=== PATIENT | female | born 2000 | race Caucasian/White ===

== ENCOUNTER 2025-11-08 08:53 | Day surgery (SDC) | payer SELFPAY ==
[2025-11-08] VITALS (9 sets, daily range): BP systolic 97–117; BP diastolic 52–74; PULSE 65–80; RESP 14–16; TEMP 36.3–36.7; O2SAT 97–100; BMI 29.1
[2025-11-08 09:17] LABS: Internal QC Validated? YES +Cl - CLEAR BKGD; Pregnancy, Urine Negative Negative
--- NOTE | 2025-11-08 09:21 | HP.PCM_ITS ---
[facility] - General General Date of Admission: 11/08/25 Date of Service: 11/08/25 Chief Complaint: Abdominal pain HPI Narrative LOUIE MCLEAN, is a 25 F who presents [Chief Complaint: Stomach pains The patient reports episodic stomach pains that began this past summer. Initially occurred during physical activity (e.g., mopping floors, mowing a bumpy yard). Subsequently, episodes also occur after eating, particularly when breakfast is skipped and a large lunch is eaten around noon. Pain duration ranges from a few minutes up to approximately 20 minutes; a recent episode was shorter, while the prior one lasted about 20 minutes. Pain radiates to the lower back. Denies heartburn or indigestion. Applies essential oils topically to the abdomen during episodes; does not ingest medications for relief. Prior testing noted: hepatobiliary iminodiacetic acid (HIDA) scan with hyperactive gallbladder/ejection fraction reportedly ~80% (normal ~35% per discussion). ] [facility] Medical History Non-smoker Tick bite Contact dermatitis Epigastric pain Home Medications ?Medication ?Instructions ?Recorded ?Last Taken ?Type NK 10/17/25 Unknown History Allergy/AdvReac Type Severity Reaction Status Date / Time No Known Allergies Allergy Verified 11/08/25 09:14 Surgical History Previous delivery, delivered Social History Smoking Status: Never smoker ROS Constitutional Constitutional: Denies fatigue, fever(s), poor appetite, weight gain or weight loss Gastrointestinal Gastrointestinal: Denies belching, bloating, change in bowel habits, change in stool character, chewing difficulty, coffee ground emesis, constipation, cramping, diarrhea, dyspepsia, dysphagia, early satiety, excessive flatus, fecal incontinence, heartburn, hematemesis, hematochezia, hemorrhoids, loose stools, melena, nausea, odynophagia, rectal bleeding, tenesmus, vomiting or weight changes Physical Exam Const alert, oriented x3, no apparent distress and healthy appearing General Appearance: cooperative GI normal to inspection, nondistended, normoactive bowel sounds, soft to palpation, non-tender and non-distended Percussion: normal to percussion Rectal Exam: deferred Results Lab / Micro Data Labs: Laboratory Results - last 24 hr 11/08/25 09:05: Urine Test Negative Assessment & Plan Assessment/Plan (1) Abdominal pain: PLAN: Assessment and Plan Assessment and Plan (1) Abdominal pain: Status: Acute Plan: Episodic abdominal pain radiating to lower back : Abdominal pain episodes associated with activity and post-prandial state; radiates to lower back. Differential diagnoses discussed include overactive gallbladder, excess gastric acid production, Helicobacter pylori (H. pylori) gastritis, and other inflammatory causes. - Perform upper endoscopy (scope) to visualize the stomach and obtain biopsies. - Place Baker wireless pH monitor during the endoscopy to assess gastric acid levels during daily activities and eating. - Wear the external warehouse laborer during monitoring and return the warehouse laborer for data review. - Proceed with the scope and Baker pH monitoring before the planned wedding date (December 15). - Continue usual routine (including current supplements and diet) during the monitoring period to capture typical physiology. Prior hyperactive gallbladder on hepatobiliary iminodiacetic acid (HIDA) scan : HIDA scan reportedly showed hyperactive gallbladder with high ejection fraction (~80%). Surgery not indicated per discussion. Follow-up : Procedure scheduling and data collection to determine etiology of symptoms. - Nurse to arrange/setup scheduling and equipment for endoscopy with Baker pH monitoring.
[2025-11-08] MEDS: Lactated Ringers 1,000 ML 15 ML IV (09:24)
--- NOTE | 2025-11-08 10:00 | EGD_PTH ---
PATIENT: LOUIE MCLEAN LOC: EN U#:[id number] AGE/SX: 25/F ROOM: RE11/08/[address]: Dr. Klever Estrada DO : 2000 BED: DIS: 11/08/2025 SPEC #: [id number] RECD: 11/08/25 15:12 STATUS: CANDI REWenceslao #: [id number] CODI: 11/08/25 10:[address]: Klever Estrada DEPT: SURGICAL PATHOLOGY RECD BY: Isaac Lambert ENTERED: 11/09/25 10:56 SP TYPE: EGD BIOPSY BROOKE DR: ALY Ghosh Tissues: A - Esophagus, NOS Procedures: Surgery Specimen Level IV HEADER OPERATION: EGD with biopsy PRE-OP DIAGNOSIS: Abdominal pain TISSUE SUBMITTED: A- Random esophagus biopsy MICROSCOPIC DIAGNOSIS A. Esophagus, random, biopsy: - Benign squamous mucosa, negative for eosinophils. MICROSCOPIC DESCRIPTION Slides are reviewed. GROSS DESCRIPTION A. Received in fixative is one container labeled with the patient's name and designated Random esophagus biopsy. The specimen consists of two irregular fragments of toussaint tissue, each measuring 0.3 cm. The specimen is totally submitted in one cassette. MI 11/09/2025 CPT:06307
--- NOTE | 2025-11-08 10:10 | PCM.PRE.AN2 ---
ASA Classification* ASA Classification ASA Classification: 1 Assessment & Plan Anesthesia* Anesthesia Assessment Anesthesia Assessment: Discussed sedation and/or anesthesia options, risks, benefits, and alternatives with patient/parents/legal guardian/POA. Questions invited. The patient/parents/legal guardian/POA seems to understand and agrees to proceed with anesthesia plan. Reviewed the physical assessment, medical history, allergy history and patient home medications list prior to surgery/procedure/anesthetic and documented any changes. Performed airway and anesthesia risk assessments. Anesthesia Type Anesthesia Type: MAC History Source History Obtained from:: Patient and Chart Anesthesia Focused Assessment* Temperature: 98.1 F Pulse Rate: 76 Blood Pressure: 117/74 Respiratory Rate: 16 Pulse Ox: 100 Oxygen Delivery Method: Room Air Airway Assessment Mouth opens: >3 cm Mallampati Score: III Teeth Condition: Intact Neck Range of motion (ROM): Full ROM Labs Anesthesia Preop lab: CBC CHEMISTRY COAG Urine Test Negative Negative Today, 09:05 Pre-Assessment Diagnosis/Proposed Procedure Planned Operative Procedure(s): EGD WITH PH PROBE Anesthesia History Anesthesia History - manager transfer: Anesthesia History - manager transfer Hx Hospitalization No 11/05/25 13:32 Any Problems With Anesthesia No 11/05/25 13:32 Cholinesterase deficiency No 11/05/25 13:32 You/Your Family Experience No 11/05/25 13:32 fever (hyperthermia) with Relationship Recent Exposure to Contagious No 11/08/25 09:14 Disease Does patient have nerve No 11/05/25 13:32 stimulator Patient instructed to have device shut off --Does patient have Pacemaker No 11/08/25 09:14 or ICD? When Was Last Pacemaker Check QUESTION #4 FULL TEXT: You/Your Family Experience fever (hyperthermia) with Anesthesia Last Oral Intake Last Oral intake: Last Oral Intake NPO since 00:00 11/08/25 09:14 Meds taken in AM with sips of No 11/08/25 09:14 water? Meds patient instructed to take am of surgery PONV PONV - manager transfer: PONV - manager transfer Female Yes 11/05/25 13:32 HX of Motion Sickness No 11/05/25 13:32 HX of N/V After Surgery No 11/05/25 13:32 Non-Smoker Yes 11/05/25 13:32 Duration of Surgery greater No 11/05/25 13:32 than 60 minutes Number of Risk Factors 2 11/05/25 13:32 PONV Score Moderate Risk 11/05/25 13:32 Height & Weight Height & Weight: Anesthesia: Height & Weight Height 5 ft 1 in 11/08/25 09:14 Weight: 70 kg 11/08/25 09:14 Body Mass Index (BMI) 29.1 11/08/25 09:14 Respiratory Assessment Respiratory Assessment - manager transfer: Respiratory Tract Infection Hx - manager transfer Hx Respiratory Tract Infection No 11/05/25 13:32 STOP Sleep Apnea STOP Sleep Apnea - manager transfer: STOP Sleep Apnea - manager transfer Hx Hypertension No 11/05/25 13:32 Hx Sleep Apnea No 11/05/25 13:32 CPAP BIPAP Do you snore loudly (louder No 11/05/25 13:32 than talking or can be heard Do you often feel tired/ No 11/05/25 13:32 fatigued/ sleepy during daytime? Has anyone observed you stop No 11/05/25 13:32 breathing during sleep? STOP Results Negative 11/05/25 13:32 QUESTION #5 FULL TEXT : Do you snore loudly (louder than talking or can be heard through closed doors)? 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 Specify any problems Hx of Preganancy in last 3 No 11/05/25 13:32 Months Nurse Filling Out Transfusion [email or web address] 11/05/25 13:32 & Questions: Date: 11/05/25 11/05/25 13:32 Time: 13:34 11/05/25 13:32 Patient unable to answer at this time (ie. confused, unrespo /Reproduction History /Reproductive History - manager transfer: /Reproductive Hx- manager transfer Hx Now Gestational Age (in weeks): EDC: Hx Hx Para Hx Section SAB Does the father of the baby or his family experience fever w Father of the baby Malignant Hypertension history comment Active Medications Active Medications: Current Medications Generic Name Dose Route Start Last Admin Trade Name Freq PRN Reason Stop Dose Admin Lactated Ringer's 1,000 mls @ 15 mls/hr 11/08/25 09:15 11/08/25 09:24 IV 15 mls/hr .Q48H IRIS Administration PFSH Medical History Non-smoker Tick bite Contact dermatitis Epigastric pain Home Medications ?Medication ?Instructions ?Recorded ?Last Taken ?Type NK 10/17/25 Unknown History Allergy/AdvReac Type Severity Reaction Status Date / Time No Known Allergies Allergy Verified 11/08/25 09:14 Surgical History Previous delivery, delivered Social History Smoking Status: Never smoker Review of Systems (Anesthesia) ROS Narrative System reviewed and no additional complaints, except as documented.
--- NOTE | 2025-11-08 10:38 | OP.EGD_ITS ---
Patient Name: Radha Johnson Procedure Date: 11/08/2025 10:07 AM Date of : 2000 Age: 25 Procedure: Upper GI endoscopy Indications: Functional Dyspepsia, Indigestion, Heartburn, Failure to respond to medical treatment Providers: Klever Estrada DO Referring MD: Daryl Ghosh Medicines: Monitored Anesthesia Care Patient Profile: This is a 25 year old female. Refer to note in patient chart for documentation of history and physical. Patient has symptoms of chronic dyspepsia, chronic heartburn and chronic nausea. Complications: No immediate complications. Procedure: Pre-Anesthesia Assessment: - Prior to the procedure, a History and Physical was performed, and patient medications and allergies were reviewed. The patient is competent. The risks and benefits of the procedure and the sedation options and risks were discussed with the patient. All questions were answered and informed consent was obtained. Patient identification and proposed procedure were verified by the physician in the pre-procedure area. Mental Status Examination: alert and oriented. Airway Examination: normal oropharyngeal airway and neck mobility. Respiratory Examination: clear to auscultation. CV Examination: normal. Prophylactic Antibiotics: The patient does not require prophylactic antibiotics. Prior Anticoagulants: The patient has taken no anticoagulant or antiplatelet agents except for NSAID medication. ASA Grade Assessment: II - A patient with mild systemic disease. After reviewing the risks and benefits, the patient was deemed in satisfactory condition to undergo the procedure. The anesthesia plan was to use monitored anesthesia care (MAC). Immediately prior to administration of medications, the patient was re-assessed for adequacy to receive sedatives. The heart rate, respiratory rate, oxygen saturations, blood pressure, adequacy of pulmonary ventilation, and response to care were monitored throughout the procedure. The physical status of the patient was re-assessed after the procedure. After obtaining informed consent, the endoscope was passed under direct vision. Throughout the procedure, the patient's blood pressure, pulse, and oxygen saturations were monitored continuously. The Colonoscope was introduced through the mouth, and advanced to the second part of duodenum. The upper GI endoscopy was accomplished without difficulty. The patient tolerated the procedure well. Scope In: 10:26:49 AM Scope Out: 10:32:53 AM Total Procedure Duration Time 0 hours 6 minutes 4 seconds Findings: The examined esophagus was normal. Biopsies were obtained from the proximal and distal esophagus with cold forceps for histology of suspected eosinophilic esophagitis. Abnormal motility was noted in the lower third of the esophagus. The cricopharyngeus was normal. There are extra peristaltic waves in the esophageal body. The distal esophagus/lower esophageal sphincter is spastic, but gives up passage to the endoscope. The RIVERA capsule with delivery system was introduced through the mouth and advanced into the esophagus, such that the RIVERA pH capsule was positioned 35 cm from the incisors, which was 6 cm proximal to the GE junction. Suction was applied to the well of the RIVERA pH capsule to suck in the adjacent mucosa of the esophagus using the external vacuum pump set at a minimum vacuum pressure of 550 mmHg for 30 seconds. The RIVERA pH capsule was then deployed by depressing the plunger on top of the handle to advance the locking pin into the mucosa, thereby attaching the capsule to the esophagus. The plunger was then rotated a quarter turn clockwise to release the capsule from the delivery system. The delivery system was then withdrawn. Endoscopy was utilized for probe placement and diagnostic evaluation. The entire examined stomach was normal. No gross lesions were noted in the entire examined duodenum. Impression: - Normal esophagus. - Abnormal esophageal motility. - Normal stomach. - No gross lesions in the entire examined duodenum. - Biopsies were taken with a cold forceps for evaluation of eosinophilic esophagitis. - The RIVERA pH capsule was positioned 35 cm from the incisors, which was 6 cm proximal to the GE junction. Recommendation: - Discharge patient to home. - Resume previous diet. - Continue present medications. - Await pathology results. Procedure Code(s): --- Professional --- 43159, Esophagogastroduodenoscopy, flexible, transoral; with biopsy, single or multiple CPT copyright 2021 [employer]. All rights reserved. The codes documented in this report are preliminary and upon bio medical technician review may be revised to meet current compliance requirements. Klever Estrada DO 11/08/2025 10:37:43 AM This report has been signed electronically. Number of Addenda: 0 Note Initiated On: 11/08/2025 10:07 AM
--- NOTE | 2025-11-08 10:38 | OP.PROVAT_ITS ---
11/08/2025 Daryl Ghosh Re : Upper GI endoscopy procedure for Radha Bray Chalino This procedure was performed on October. My impressions and recommendations are as follows: Impressions : - Normal esophagus. - Abnormal esophageal motility. - Normal stomach. - No gross lesions in the entire examined duodenum. - Biopsies were taken with a cold forceps for evaluation of eosinophilic esophagitis. - The RIVERA pH capsule was positioned 35 cm from the incisors, which was 6 cm proximal to the GE junction. Recommendations : - Discharge patient to home. - Resume previous diet. - Continue present medications. - Await pathology results. My findings are described in the full procedure note, which is enclosed. If I can be of further assistance, please feel free to contact me at . Sincerely, Klever Estrada, 11/08/2025 10:37:43 AM This report has been signed electronically.
--- NOTE | 2025-11-08 10:43 | PCM.POST.ANE ---
Anesthesia: Postop Eval I Current Vital Signs Temperature: 97.3 F Pulse Rate: 80 Blood Pressure: 104/57 Respiratory Rate: 16 Pulse Ox: 98 Oxygen Delivery Method: Room Air Assessment Airway patent: Yes Spontaneous unlabored respirations: Yes Mental status: Asleep nausea: No Vomiting: No Anesthesia Complication: No Fluid Hydration Crystalloid volume administer (ml): 400 Total IV fluid infused: 400 Progress Note Anesthesia document: Postop Eval 1 completed: Yes
--- NOTE | 2025-11-08 12:33 | PCM.POSTANE2 ---
Anesthesia Postop Eval I Sum Postop Eval Completion status Anesthesia document: Postop Eval 1 completed: Yes Anesthesia Postop Eval I Summary Anesthesia Postop Eval I Summary: Anesthesia Postop Eval I: Assessment Summary Airway patent Yes 11/08/25 10:44 [email or web address] Spontaneous unlabored Yes 11/08/25 10:44 [email or web address] respirations Mental status Asleep 11/08/25 10:44 [email or web address] nausea No 11/08/25 10:44 [email or web address] Vomiting No 11/08/25 10:44 [email or web address] Anesthesia Postop Eval I: Fluid Summary Crystalloid volume administer 400 11/08/25 10:44 [email or web address] (ml) Colloids volume administered ( ml) Blood Product volume administered (ml) Total IV fluid infused 400 11/08/25 10:44 [email or web address] Anesthesia Postop Eval I: Summary Notes Anesthesia Complication No 11/08/25 10:44 [email or web address] Anesthesia Complication Comment: Post-operative progress note Anesthesia: Postop Eval II Evaluation Mental status: Awake Pain Level: 0 nausea: No Vomiting: No
== END 2025-11-08 11:44 | disposition home or self-care (01) ==
LOC: EN 08:58 → AC 09:00
PROVIDERS: Anesthesiology; Visit Provider Internal Medicine Gastroenterology
PROC: (CPT 43235; principal; 2025-11-08 09:55)
DX: K22.4 Dyskinesia of esophagus (principal)
CPT/HCPCS: 43239; 81025; 88305; J2405